=== PATIENT | male | born 1980 | race Caucasian/White ===

== ENCOUNTER 2019-01-19 13:38 | Emergency (ER) | payer OTHER ==
[~2019-01-19] VITALS: Ht 190.5 cm; Wt 102.7 kg
[2019-01-19 14:02] LABS: BASOPHILS # (AUTO) 0.1 X10'3 (0-0.2); EOSINOPHILS % (AUTO) 0.6 % (0-6); HEMATOCRIT 46.4 % (42.0-52.0); HEMOGLOBIN 16.2 g/dl (14.0-17.9); LYMPHOCYTES # (AUTO) 2.5 X10'3 (1.1-4.8); LYMPHOCYTES % (AUTO) 38.4 % (21-51); MEAN CORPUSCULAR HGB CONC 34.9 g/dL (33.0-36.5); MEAN CORPUSCULAR VOLUME 88.8 FL (78-98); MEAN PLATELET VOLUME 8.6 FL (7.4-10.4); MONOCYTES # (AUTO) 0.4 X10'3 (0-0.9); MONOCYTES % (AUTO) 6.5 % (2-12); NEUTROPHILS # (AUTO) 3.5 X10'3 (1.8-7.7); NEUTROPHILS % (AUTO) 53.5 % (42-75); PLATELET COUNT 190 X10'3 (140-440); RED BLOOD COUNT 5.23 X10'6 (4.70-6.10); RED CELL DISTRIBUTION WIDTH 12.7 % (11.5-14.5); WHITE BLOOD COUNT 6.5 X10'3 (4.5-11.0)
[2019-01-19 14:14] LABS: ALANINE AMINOTRANSFERASE 64 U/L (12-78); ALBUMIN 4.7 G/DL (3.4-5.0); ALBUMIN/GLOBULIN RATIO 1.3 (1.1-1.5); ALKALINE PHOSPHATASE 64 IU/L (46-116); ANION GAP 11 (8-16); ASPARTATE AMINO TRANSFERASE 24 U/L (10-37); BILIRUBIN,TOTAL 0.9 MG/DL (0.1-1.0); BLOOD UREA NITROGEN 15 MG/DL (7-18); CALCIUM 9.4 MG/DL (8.5-10.1); CHLORIDE 104 MMOL/L (99-107); CREATININE 0.94 MG/DL (0.60-1.10); GLUCOSE 116 MG/DL (70-104); POTASSIUM 3.5 MMOL/L (3.5-5.1); SODIUM 141 MMOL/L (135-145); TOTAL CARBON DIOXIDE 25.9 MMOL/L (24-32); TOTAL PROTEIN 8.2 G/DL (6.4-8.2); eGFR > 90 ML/MIN
--- NOTE | 2019-01-19 17:20 | NUR ---
awaiting for 3hour troponin.
[2019-01-19 17:44] VITALS: BP 124/80
== END 2019-01-19 17:48 | disposition home or self-care (01) ==
LOC: ER 13:38
DX: R07.89 Other chest pain (principal); R00.2 Palpitations; R42 Dizziness and giddiness; E78.00 Pure hypercholesterolemia, unspecified
CPT/HCPCS: 36415; 71045; 80053; 83735; 84484; 85025; 93005; 99284

== ENCOUNTER 2019-09-26 13:44 | Emergency (ER) | payer OTHER ==
[~2019-09-26] VITALS: Ht 188 cm; Wt 103.6 kg
[2019-09-26 15:09] LABS: BASOPHILS # (AUTO) 0.1 X10'3 (0-0.2); HEMOGLOBIN 16.2 g/dl (14.0-17.9); LYMPHOCYTES # (AUTO) 2.2 X10'3 (1.1-4.8); RED CELL DISTRIBUTION WIDTH 12.7 % (11.5-14.5); WHITE BLOOD COUNT 8.2 X10'3 (4.5-11.0)
[2019-09-26 15:11] LABS: BASOPHILS % (AUTO) 0.9 % (0-1); EOSINOPHILS # (AUTO) 0.1 X10'3 (0-0.9); EOSINOPHILS % (AUTO) 0.8 % (0-6); HEMATOCRIT 46.8 % (42.0-52.0); LYMPHOCYTES % (AUTO) 27.4 % (21-51); MEAN CORPUSCULAR HEMOGLOBIN 30.5 PG (27.0-31.0); MEAN CORPUSCULAR HGB CONC 34.6 g/dL (33.0-36.5); MEAN CORPUSCULAR VOLUME 88.2 FL (78-98); MEAN PLATELET VOLUME 9.1 FL (7.4-10.4); MONOCYTES # (AUTO) 0.7 X10'3 (0-0.9); MONOCYTES % (AUTO) 9.1 % (2-12); NEUTROPHILS # (AUTO) 5.1 X10'3 (1.8-7.7); NEUTROPHILS % (AUTO) 61.8 % (42-75); PLATELET COUNT 185 X10'3 (140-440); RED BLOOD COUNT 5.31 X10'6 (4.70-6.10)
[2019-09-26 15:24] LABS: ALANINE AMINOTRANSFERASE 57 U/L (12-78); ALBUMIN 4.3 G/DL (3.4-5.0); ALBUMIN/GLOBULIN RATIO 1.3 (1.1-1.5); ALKALINE PHOSPHATASE 59 IU/L (46-116); ANION GAP 9 (8-16); ASPARTATE AMINO TRANSFERASE 30 U/L (10-37); BILIRUBIN,TOTAL 0.7 MG/DL (0.1-1.0); BLOOD UREA NITROGEN 12 MG/DL (7-18); BUN/CREATININE RATIO 12.9 (5.4-32.0); CALCIUM 9.1 MG/DL (8.5-10.1); CHLORIDE 106 MMOL/L (99-107); CREATININE 0.93 MG/DL (0.60-1.10); GLUCOSE 110 MG/DL (70-104); POTASSIUM 3.3 MMOL/L (3.5-5.1); SODIUM 142 MMOL/L (135-145); TOTAL CARBON DIOXIDE 27.2 MMOL/L (24-32); TOTAL PROTEIN 7.6 G/DL (6.4-8.2); eGFR > 90 ML/MIN
[2019-09-26 15:34] LABS: MAGNESIUM 1.9 MG/DL (1.5-2.4)
[2019-09-26 15:58] VITALS: BP 121/79
== END 2019-09-26 16:00 | disposition home or self-care (01) ==
LOC: ER 13:44
DX: R00.2 Palpitations (principal); E78.00 Pure hypercholesterolemia, unspecified
CPT/HCPCS: 36415; 71045; 80053; 83735; 84439; 84443; 84484; 85025; 93005; 99285

== ENCOUNTER 2024-11-04 16:53 | Emergency (ER) | payer OTHER ==
[~2024-11-04] VITALS: Ht 190.5 cm; Wt 109.1 kg
[2024-11-04 22:42] LABS: CREATININE 1.08 MG/DL (0.60-1.10); MEAN PLATELET VOLUME 8.0 FL (7.4-10.4); RED CELL DISTRIBUTION WIDTH 12.9 % (11.5-14.5); TOTAL CARBON DIOXIDE 28.4 MMOL/L (24-32); eCRCL 106 ML/MIN; eGFR 75 ML/MIN
--- NOTE | 2024-11-05 00:04 | VASCULAR REPORT ---
Right lower extremity venous duplex Clinical History: Right lower extremity swelling. Comparison: None Technique: Duplex Doppler evaluation of the deep venous systems of right lower extremities from the common femor al veins to the popliteal veins including color Doppler and spectral/pulsed waveform analysis was per formed. Findings: RIGHT SIDE: The common femoral vein demonstrates appropriate compressibility and waveform variability. There is compressibility/patency of the great saphenous vein at the proximal thigh. The femoral vein demonstrates appropriate compressibility and waveform variability. The deep femoral vein demonstrates appropriate compressibility and waveform variability. The popliteal vein demonstrates appropriate compressibility and waveform variability. There is normal compressibility at the tibioperoneal trunk. LEFT SIDE: The common femoral vein demonstrates appropriate compressibility and waveform variability. There is compressibility/patency of the great saphenous vein at the proximal thigh. The femoral vein demonstrates appropriate compressibility and waveform variability. The deep femoral vein demonstrates appropriate compressibility and waveform variability. The popliteal vein demonstrates appropriate compressibility and waveform variability. There is normal compressibility at the tibioperoneal trunk. Impression: 1. No right femoropopliteal venous thrombosis.
--- NOTE | 2024-11-05 00:11 | Physician Documentation ---
History of Present Illness ~ Chief Complaint: Abscess Stated Complaint: FOOT PAIN Time Seen by MD: 22:31 Primary Medical Doctor: JACINTO Source: patient, family, RN notes reviewed Mode of Arrival: POV Exam Limitations: no limitations HPI 44 year old male seen in bed 19 presents to the emergency department for complaints of an abscess that has been present for a week. He states that he has cellulites on his right foot. He states his foot is red and is feeling tight He had a fever of 102 that has improved since beginning antibiotics. Patient endorses antibiotics such as keflex and bactrium and states that the redness and pain of his foot is decreasing. Of note patient has been traveling as he [place] in [place]. Tetanus Within 5 Years: Yes Medication Reconciliation Allergies: Coded Allergies: No Known Allergies (Unverified , 11/04/24) Past Medical History Past Medical History: High Cholesterol Past Surgical History: no surgical history Alcohol Use: None Drug Use: none Lives with: Family Lives In: Home Review of Systems All Other Systems at this time: Reviewed and Negative ROS As stated above in the HPI, otherwise all systems are reviewed and negative. Physical Exam Vital Signs: RN Vital Signs have been reviewed: Yes, Temperature: 98.9, Source: Temporal, Heart Rate: 78, Respiratory Rate: 16, BP: 118/81, Pulse Oximetry: 99, Weight: 109.090 Pulse Oximetry Reflects: adequate oxygenation Physical Exam General: The patient is well developed, well nourished, nontoxic appearing and is in no acute distress. Skin: [place], warm and dry with no rashes. HEENT: Head was normocephalic and atraumatic. Eyes - pupils equal, round, reactive to light and accommodation. Extraocular movements were intact. Conjunctivae were nonicteric. Ears - bilateral tympanic membranes were normal. The mouth and oropharynx were clear with moist mucous membranes. There were no pharyngeal exudates or erythema. Neck: Supple and nontender. There was no jugular venous distention, lymphadenopathy, thyromegaly or masses. Chest: Clear to auscultation bilaterally without wheezes, rales or rhonchi. No accessory muscle use. No dullness to percussion. Heart: Rate regular and rhythmic. S1, S2. No murmurs. Palpation of the chest wall was normal. No rubs or thrills. Abdomen: Soft, nontender and nondistended. Positive bowel sounds. No guarding or rebound. No hepatosplenomegaly or palpable masses. Extremities:Right foot has prior demarkation, it is violaceous with pitting edema extending from the ankle down to the toes. The patient moves all extremities. Pulses were equal and symmetric. Neurologic: Cranial nerves II-XII were intact. Sensation was intact to light touch throughout. Motor strength was 5/5 in all four extremities. Deep tendon reflexes were intact in both upper and lower extremities. Psychologic: The patient was oriented to person, place and time. The patient demonstrated appropriate judgement and insight. Progress Results/Orders Results/Orders Vital Signs 11/04/24 11/04/24 17:06 19:14 Temp 97.3 98.9 Pulse 81 78 Resp 18 16 B/P (MAP) 141/84 118/81 (93) Pulse Ox 98 99 Laboratory Tests Test 11/04/24 22:21 White Blood Count 8.0 Red Blood Count 5.17 Hemoglobin 15.8 Hematocrit 44.5 Mean Corpuscular Volume 86.1 Mean Corpuscular Hemoglobin 30.7 Mean Corpuscular Hemoglobin Concent 35.6 Red Cell Distribution Width 12.9 Platelet Count 284 Mean Platelet Volume 8.0 Neutrophils (%) (Auto) 52.7 Lymphocytes (%) (Auto) 39.7 Monocytes (%) (Auto) 5.2 Eosinophils (%) (Auto) 0.9 Basophils (%) (Auto) 1.5 H Neutrophils # (Auto) 4.2 Lymphocytes # (Auto) 3.2 Monocytes # (Auto) 0.4 Eosinophils # (Auto) 0.1 Basophils # (Auto) 0.1 CBC Comment Erythrocyte Sedimentation Rate 13 D-Dimer 0.30 D-Dimer Comment Sodium Level 137 Potassium Level 4.4 Chloride Level 102 Carbon Dioxide Level 28.4 Anion Gap 7 L Blood Urea Nitrogen 12 Creatinine 1.08 Estimated GFR/1.73 m2 75 BUN/Creatinine Ratio 11.1 Glucose Level 107 H Calcium Level 9.6 Total Bilirubin 0.6 Aspartate Amino Transf (AST/SGOT) 23 Alanine Aminotransferase (ALT/SGPT) 65 Alkaline Phosphatase 76 C-Reactive Protein 1.32 H Total Protein 8.6 H Albumin 4.6 Globulin 4.0 Albumin/Globulin Ratio 1.2 Procalcitonin < 0.05 Chemistry Comments EKG/XRAY/CT/US/VASC/MRI Ultrasound : Impression Right lower extremity venous duplex Clinical History: Right lower extremity swelling. Comparison: None Technique: Duplex Doppler evaluation of the deep venous systems of right lower extremities from the common femoral veins to the popliteal veins including color Doppler and spectral/pulsed waveform analysis was performed. Findings: RIGHT SIDE: The common femoral vein demonstrates appropriate compressibility and waveform variability. There is compressibility/patency of the great saphenous vein at the proximal thigh. The femoral vein demonstrates appropriate compressibility and waveform variability. The deep femoral vein demonstrates appropriate compressibility and waveform variability. The popliteal vein demonstrates appropriate compressibility and waveform variability. There is normal compressibility at the tibioperoneal trunk. LEFT SIDE: The common femoral vein demonstrates appropriate compressibility and waveform variability. There is compressibility/patency of the great saphenous vein at the proximal thigh. The femoral vein demonstrates appropriate compressibility and waveform variability. The deep femoral vein demonstrates appropriate compressibility and waveform variability. The popliteal vein demonstrates appropriate compressibility and waveform variability. There is normal compressibility at the tibioperoneal trunk. Impression: 1. No right femoropopliteal venous thrombosis. Dictated by:REGINA KURTZ MD Dictation date and time:11/05/241 Electronically Signed by: REGINA UKRTZ MD Date and Time: 11/05/24 0002 Departure Time of Disposition: 00:17 Disposition: 01 HOME / SELF CARE / HOMELESS Impression: Primary Impression: Tinea pedis Additional Impression: Swelling of lower extremity Condition: Stable Discharge Instructions: Cellulitis, Adult, [id number] Referrals: NO PRIMARY CARE PROVIDER (PCP) Education Educated: Patient Educated regarding: diagnosis, treatment, prognosis, need for follow up Signature Scribe Signature: Scribed for Barber Reyna MD by Kalyn Kaur . 11/05/24 00:18 BARBER REYNA MD Nov 05, 2024 00:11 KALYN AVERY Nov 05, 2024 00:18
[2024-11-05] MEDS ORDERED: FLUC100T PO (00:13)
[2024-11-05] MEDS ORDERED: CLOT15CR73 TOP (00:13)
--- NOTE | 2024-11-05 00:35 | VASCULAR REPORT ---
BILATERAL Lower Extremity Arterial Duplex Date: 11/04/2024 11:32 PM Clinical History: Not provided Comparison: None Technique: Duplex Doppler evaluation including color Doppler and spectral/pulsed waveform analysis of the right lower extremity arteries was performed. Finding: RIGHT: Peak systolic velocities are as follows: DIETETIC TECHNICIAN REGISTERED 131 cm/s Deep femoral 90 cm/s SFA proximal 113 cm/s SFA mid-portion 104 cm/s SFA distal 66 cm/s Popliteal 64 cm/s Posterior tibial 62 cm/s Anterior tibial 66 cm/s Peroneal 27 cm/s Dorsalis pedis 42 cm/s The waveforms are normal and triphasic. No significant spectral broadening.. REFERENCE VALUES, [facility] ([facility]) vascular Imaging Lab Criteria: Peak systolic velocity ranges (in cm/sec) are as follows: <150 cm/s - <20 % stenosis 150-200 cm/s - 20-49% stenosis 200-300 cm/s - 50-75% stenosis >300 cm/s -> 75% stenosis IMPRESSION: 1. There is no evidence for peripheral vascular insufficiency in the right lower extremity. 2. No significant focal stenosis is identified.
[2024-11-05 00:38] VITALS: BP 119/80; PULSE 72; RESP 16; TEMP 98.6; O2SAT 99
== END 2024-11-05 00:39 | disposition home or self-care (01) ==
LOC: ER 16:54
DX: B35.3 Tinea pedis (principal); R22.41 Localized swelling, mass and lump, right lower limb; E78.00 Pure hypercholesterolemia, unspecified
CPT/HCPCS: 80053; 84145; 85025; 85379; 85651; 86140; 93926; 93971; 99284